=== PATIENT | male | born 1965 | race African-American/Black ===

== ENCOUNTER 2021-05-05 15:34 | Emergency (ER) | payer SELFPAY ==
[2021-05-05 15:48] VITALS: BP 149/98
--- NOTE | 2021-05-05 16:22 | XRay Report ---
LEFT HAND 3 VIEW(S) INDICATION / CLINICAL INFORMATION: PAIN AND SWELLING . Hit index finger with hammer at work one hour ago. COMPARISON: None available. FINDINGS: BONES / JOINT(S): No acute fracture or subluxation. No significant arthritis. SOFT TISSUES: Mild soft tissue swelling of the index finger. ADDITIONAL FINDINGS: None. Signer Name: Bonnie Diane MD Signed: 05/05/2021 4:18 PM Workstation Name: [id number]
--- NOTE | 2021-05-05 17:25 | Emergency Department Report ---
ED Upper Extremity Inj HPI - General Chief Complaint: Extremity Injury, Upper Stated Complaint: HAND INJURY Time Seen by Provider: 05/05/21 16:49 Source: patient Mode of arrival: Ambulatory Limitations: No Limitations - History of Present Illness Initial Comments: Patient is a 55-year-old male presents emergency room complaints of a left hand injury that occurred just prior to arrival. Patient states that he was at work using a hammer and accidentally hammered his hand. He denies any abrasion or laceration. He has associated pain, swelling, bruising to the left hand. He states he is left-hand dominant. He denies any numbness or weakness. Past medical history of hypertension. Allergy to Benadryl. - Related Data Previous Rx's Medication Instructions Recorded Last Taken Type Acetaminophen/Codeine [Tylenol 1 tab PO Q6H PRN #7 tab 05/05/21 Unknown Rx /Codeine # 3 tab] Ibuprofen [Motrin 600 MG tab] 600 mg PO Q8H PRN #12 tablet 05/05/21 Unknown Rx Allergies Allergy/AdvReac Type Severity Reaction Status Date / Time diphenhydramine Allergy Unknown Verified 05/05/21 15:44 [From Benadryl] ED Review of Systems ROS: Stated complaint: HAND INJURY Other details as noted in HPI Comment: All other systems reviewed and negative ED Past Medical Hx - Past Medical History Hx Hypertension: Yes Hx Kidney Stones: Yes Additional medical history: PROSTRATE - Surgical History Additional Surgical History: KIDNEY STONE LITHOPRISY - Social History Smoking Status: Never Smoker Substance Use Type: None - Medications Home Medications: Home Medications Medication Instructions Recorded Confirmed Last Taken Type Acetaminophen/Codeine [Tylenol 1 tab PO Q6H PRN #7 tab 05/05/21 Unknown Rx /Codeine # 3 tab] Ibuprofen [Motrin 600 MG tab] 600 mg PO Q8H PRN #12 tablet 05/05/21 Unknown Rx ED Physical Exam - General Limitations: No Limitations General appearance: alert, in no apparent distress - Head Head exam: Present: atraumatic, normocephalic - Eye Eye exam: Present: normal appearance - ENT ENT exam: Present: mucous membranes moist - Extremities Exam Extremities exam: Present: other (ttp, mild edema, ecchymosis present to the left dorsal hand overlying the 2nd and 3rd metacarpals, slightly decreased ROM secondary to pain, no wrist ttp, no snuffbox ttp, neurovascularly intact) - Neurological Exam Neurological exam: Present: alert, oriented X3 - Psychiatric Psychiatric exam: Present: normal affect, normal mood - Skin Skin exam: Present: warm, dry, intact ED Course Vital Signs 05/05/21 05/05/21 15:47 18:06 Temperature 98.8 F Pulse Rate 82 78 Respiratory 20 16 Rate Blood Pressure 149/98 O2 Sat by Pulse 97 100 Oximetry ED Medical Decision Making - Radiology Data Radiology results: report reviewed Ordering Physician: MATA ANGELO MD Date of Service: 05/05/21 Procedure(s): XR hand 3+V LT Accession Number(s): [id number] cc: ED MD GI Fluoro Time In Minutes: LEFT HAND 3 VIEW(S) INDICATION / CLINICAL INFORMATION: PAIN AND SWELLING . Hit index finger with hammer at work one hour ago. COMPARISON: None available. FINDINGS: BONES / JOINT(S): No acute fracture or subluxation. No significant arthritis. SOFT TISSUES: Mild soft tissue swelling of the index finger. ADDITIONAL FINDINGS: None. Signer Name: Bonnie Diane MD Signed: 05/05/2021 4:18 PM Workstation Name: [id number] Transcribed By: DT Dictated By: Beto Diane MD Electronically Authenticated By: Beto Diane MD Signed Date/Time: 05/05/211617 DD/ 16 TD/TT: - Medical Decision Making Patient is a 55-year-old male presents emergency room complaints of a left hand injury that occurred just prior to arrival. Patient states that he was at work using a hammer and accidentally hammered his hand. He denies any abrasion or laceration. He has associated pain, swelling, bruising to the left hand. He states he is left-hand dominant. He denies any numbness or weakness. Past medical history of hypertension. Allergy to Benadryl. vss. on exam: ttp, mild edema, ecchymosis present to the left dorsal hand overlying the 2nd and 3rd metacarpals, slightly decreased ROM secondary to pain, no wrist ttp, no snuffbox ttp, neurovascularly intact. XR left hand: BONES / JOINT(S): No acute fracture or subluxation. No significant arthritis. SOFT TISSUES: Mild soft tissue swelling of the index finger. ADDITIONAL FINDINGS: None. pt placed in velcro splint. Symptoms likely related to hand contusion. No signs of hematoma at this time. Given prescription for medications. Advised patient Please take medication as prescribed as needed. May use ice for 15 minutes at a time, rest, elevation of the arm. Follow-up with orthopedic doctor symptoms not improving. Return to emergency room for new or worsening symptoms. Critical care attestation.: If time is entered above; I have spent that time in minutes in the direct care of this critically ill patient, excluding procedure time. ED Disposition Clinical Impression: Hand contusion Qualifiers: Encounter type: initial encounter Laterality: left Qualified Code(s): S60.222A - Contusion of left hand, initial encounter Disposition: TO HOME OR SELFCARE Is pt being admited?: No Does the pt Need Aspirin: No Condition: Stable Instructions: Hand Contusion Additional Instructions: Please take medication as prescribed as needed. May use ice for 15 minutes at a time, rest, elevation of the arm. Follow-up with orthopedic doctor symptoms not improving. Return to emergency room for new or worsening symptoms. Prescriptions: Ibuprofen [Motrin 600 MG tab] 600 mg PO Q8H PRN #12 tablet PRN Reason: Pain, Moderate (4-6) Acetaminophen/Codeine [Tylenol /Codeine # 3 tab] 1 tab PO Q6H PRN #7 tab PRN Reason: Pain , Severe (7-10) Referrals: LESIA PEREIRA MD [Staff Physician] - 3-5 Days [facility] [Provider Group] - 3-5 Days Time of Disposition: 17:24 Print Language: BELGIAN
== END 2021-05-05 18:06 | disposition home or self-care (01) ==
LOC: ED 15:34
DX: S60.222A Contusion of left hand, initial encounter (principal); I10 Essential (primary) hypertension; Z79.899 Other long term (current) drug therapy; Z88.8 Allergy status to other drugs, medicaments and biological substances; Z98.890 Other specified postprocedural states; X58.XXXA Exposure to other specified factors, initial encounter; Y93.89 Activity, other specified; Y92.89 Other specified places as the place of occurrence of the external cause; Y99.0 Civilian activity done for income or pay